=== PATIENT | female | born 1975 | race Caucasian/White ===

== ENCOUNTER 2020-11-01 00:55 | Day surgery (SDCO) | payer OTHER ==
[~2020-11-01] VITALS: Ht 165 cm; Wt 104.0 kg
[2020-11-01 02:04] LABS: BASOPHIL 0.3 % (0-2); EOSINOPHIL 1.9 % (0-5); HCT 36.2 % (37.0-47.0); HGB 12.3 g/dl (12.5-16.0); LYMPHOCYTE 18.6 % (15-48); MCH 27.8 pg (25.0-31.0); MCV 81.7 fL (78.0-100.0); MONOCYTE 5.9 % (0-12); MPV 9.8 fL (6.0-9.5); NEUTROPHIL 72.9 % (41-80); NRBC 0; PLT 345 K/uL (150-400); RBC 4.43 M/uL (4.20-5.40); RDW 14.8 % (11.5-14.0); WBC 13.8 K/uL (4.0-10.5)
[2020-11-01 02:16] LABS: ALBUMIN 3.4 g/dL (3.4-5.0); BILIRUBIN - TOTAL 0.2 mg/dL (0.2-1.0); BUN/CREAT RATIO (CALC) 17.5 RATIO; CREATININE 0.8 mg/dL (0.51-0.95); GLOBULIN (CALCULATION) 4.4 g/dL; POTASSIUM 3.7 mmol/L (3.5-5.1); TOTAL PROTEIN 7.8 g/dL (6.4-8.2)
[2020-11-01 02:40] LABS: LACTIC ACID 1.8 mmol/L (0.4-1.9)
[2020-11-01 03:12] LABS: BILIRUBIN NEGATIVE (NEGATIVE); BLOOD 1+ Ery/uL (NEGATIVE); COLOR YELLOW (YELLOW); GLUCOSE (U) NORMAL (NORMAL); LEUKOCYTES NEGATIVE Leu/uL (NEGATIVE); NITRITE NEGATIVE (NEGATIVE); PROTEIN NEGATIVE (NEGATIVE); UROBILINOGEN 0.2 mg/dL (0.2-1.0)
[2020-11-01 03:21] LABS: CLARITY SLIGHTLY HAZY (CLEAR); URINARY WBC RARE
[2020-11-01 03:22] LABS: BACTERIA 1+
[2020-11-01] MEDS ORDERED: WELLBUTRIN XL150 MG PO (09:24)
[2020-11-01] MEDS ORDERED: BENADRYL25 MG PO (09:24)
[2020-11-01] MEDS ORDERED: LEVONOR-ETH ES1 EAC1 PO (09:25)
[2020-11-02 05:56] LABS: BASOPHIL 0.3 % (0-2); EOSINOPHIL 0.9 % (0-5); HCT 35.2 % (37.0-47.0); HGB 11.8 g/dl (12.5-16.0); LYMPHOCYTE 24.5 % (15-48); MCH 27.9 pg (25.0-31.0); MCHC 33.5 g/dL (32.0-36.0); MCV 83.2 fL (78.0-100.0); MONOCYTE 6.5 % (0-12); NEUTROPHIL 67.4 % (41-80); NRBC 0; PLT 335 K/uL (150-400); RBC 4.23 M/uL (4.20-5.40); WBC 11.1 K/uL (4.0-10.5)
[2020-11-02 06:29] LABS: ALBUMIN 3.1 g/dL (3.4-5.0); BILIRUBIN - TOTAL 0.3 mg/dL (0.2-1.0); BUN/CREAT RATIO (CALC) 10.8 RATIO; CREATININE 0.83 mg/dL (0.51-0.95); GLOBULIN (CALCULATION) 3.9 g/dL; POTASSIUM 3.5 mmol/L (3.5-5.1)
[2020-11-02] MEDS ORDERED: OXY-IR 5MG5 MG PO (09:36)
[2020-11-02] MEDS ORDERED: COLACE100 MG PO (09:36)
== END 2020-11-02 13:35 | disposition home or self-care (01) ==
LOC: FER 00:55 → FMS 07:18
PROVIDERS: Emergency Medicine; Nurse Practitioner; ADMIT Internal Medicine
DX: K80.12 Calculus of gallbladder with acute and chronic cholecystitis without obstruction (principal); K82.8 Other specified diseases of gallbladder; K58.1 Irritable bowel syndrome with constipation; K21.9 Gastro-esophageal reflux disease without esophagitis; F32.9 Major depressive disorder, single episode, unspecified; Z88.6 Allergy status to analgesic agent; Z88.5 Allergy status to narcotic agent; Z79.899 Other long term (current) drug therapy; Z20.822 Contact with and (suspected) exposure to COVID-19
CPT/HCPCS: 36415; 76705; 80053; 81001; 82150; 83605; 83690; 85025; 87040; 94010; C9113; G0378; J1100; J1170; J1644; J1885; J2250; J2405; J2543; J2710; J3010; J7030; J7120; Q9967; U0002